=== PATIENT | male | born 1940 | race Caucasian/White ===

== ENCOUNTER 2016-06-16 09:58 | Inpatient (IN) | payer OTHER, MEDICARE ==
[2016-06-16] VITALS (11 sets, daily range): BP systolic 111–204; BP diastolic 64–88; PULSE 62–89; RESP 14–18; TEMP 97.8–98.4; O2SAT 97–99
[~2016-06-16] VITALS: Ht 185.4 cm; Wt 103.7 kg
[~2016-06-16 09:58] MED LIST: ATOR10TA15 PO; LEVO125T4 PO; LISI2.5T3 PO; METO25TA3 PO; XARE20TA PO
--- NOTE | 2016-06-16 10:26 | PD ---
HPI Chief Complaint: Chest Pain Time Seen by Provider: 10:15 Travel History International Travel<30 days: No Contact w/Intl Traveler<30days: No Traveled to known affect area: No History of Present Illness HPI 75-year-old male here for evaluation of chest pain that occurred last night between 6 PM and 11 PM. The patient was admitted in April of this year for A. fib with RVR. He had a cardiac catheterization that showed a 40% RCA lesion and the overall conclusion showed nonobstructive CAD and medical management was advised. He had increased troponin during that visit and this was thought to be secondary to demand ischemia from rapid A. fib. He was started on Xarelto. Cardiac catheterization was performed by shirt hemmer Dr. Ross. Patient had left -sided chest discomfort yesterday evening between 6 PM and 11 PM. See his associated with dizziness and shortness of breath. Currently the patient is symptom-free. He called Dr. Ross's office today and was advised to present to the emergency department for evaluation. He reports having cough recently. No fevers. No paresthesias or motor deficits. PFSH Past Medical History Arthritis: Yes (joint pain, and knees) Heart Rhythm Problems: Yes (Hx. of Afib) Cardiovascular Problems: Yes High Cholesterol: Yes Chest Pain: Yes COPD: Yes (Pt. rerports scar tissue in lungs) Hiatal Hernia: Yes Hypertension: Yes Implanted Vascular Access Dvce: No Musculoskeletal: Yes Neurologic: No Psychiatric: No Reproductive: No Respiratory: Yes Thyroid Disease: Yes (HYPO - non compliant with meds) ?: Not Past Surgical History Abdominal Surgery: Yes (Appendix & Hernia Removal) Cardiac Surgery: Yes (Unsure of stents - Senior Clinical Sas Programmer is Aware- Dr. Marion Howell ) Ear Surgery: No Endocrine Surgery: No Eye Surgery: No Genitourinary Surgery: No Gynecologic Surgery: No Neurologic Surgery: No Oral Surgery: Yes (Removal of teeth - has dentures) Thoracic Surgery: No Other Surgery: Yes Social History Alcohol Use: Yes (on occasion) Tobacco Use: Yes (0.5 ppd) Substance Use: No Allergies-Medications (Allergen,Severity, Reaction): Coded Allergies: No Known Allergies (Unverified , 05/13/16) Reported Meds & Prescriptions Reported Meds & Active Scripts Active Lisinopril 2.5 Mg Tab 2.5 Mg PO DAILY Levothyroxine (Levothyroxine Sodium) 125 Mcg Tab 125 Mcg PO DAILY Atorvastatin (Atorvastatin Calcium) 10 Mg Tab 10 Mg PO HS Reported Plavix (Clopidogrel Bisulfate) 75 Mg Tab 75 Mg PO DAILY Metoprolol Tartrate 25 Mg Tab 25 Mg PO BID Review of Systems Except as stated in HPI: all other systems reviewed are Neg Physical Exam Narrative GENERAL: Well-developed, well-nourished, comfortable, no acute distress. SKIN: Warm and dry. No rash. HEAD: Atraumatic. Normocephalic. EYES: Pupils equal and round. No scleral icterus. No injection or drainage. ENT: No nasal bleeding or discharge. Mucous membranes pink and moist. CARDIOVASCULAR: Regular rate and rhythm. Distal pulses brisk and equal bilaterally. RESPIRATORY: No accessory muscle use. Clear to auscultation. Breath sounds equal bilaterally. GASTROINTESTINAL: Abdomen soft, non-tender, nondistended. MUSCULOSKELETAL: No obvious deformities. No clubbing. No cyanosis. No edema. NEUROLOGICAL: Awake and alert. No obvious cranial nerve deficits. Motor grossly within normal limits. Normal speech. PSYCHIATRIC: Appropriate mood and affect; insight and judgment normal. Data Data Last Documented VS Vital Signs Date Time Temp Pulse Resp B/P Pulse Ox O2 Delivery O2 Flow Rate FiO2 06/16/16 11:48 72 18 204/88 97 Room Air 06/16/16 10:11 97.8 Orders Basic Metabolic Panel (Bmp) (06/16/16 10:23) Ckmb (Isoenzyme) Profile (06/16/16 10:23) Complete Blood Count With Diff (06/16/16 10:23) Magnesium (Mg) (06/16/16 10:23) Prothrombin Time / Inr (Pt) (06/16/16 10:23) Act Partial Throm Time (Ptt) (06/16/16 10:23) Troponin I (06/16/16 10:23) Chest, Single Ap (06/16/16 10:23) Ecg Monitoring (06/16/16 10:23) Bilateral Bp Monitoring (06/16/16 10:23) Iv Access Insert/Monitor (06/16/16 10:23) Oximetry (06/16/16 10:23) Oxygen Administration (06/16/16 10:23) Sodium Chloride 0.9% Flush (Ns Flush) (06/16/16 10:30) Aspirin Chew (Aspirin Chew) (06/16/16 11:30) Labs Laboratory Tests Test 06/16/16 10:36 White Blood Count 5.0 TH/MM3 Red Blood Count 2.84 MIL/MM3 Hemoglobin 11.8 GM/DL Hematocrit 34.4 % Mean Corpuscular Volume 121.1 FL Mean Corpuscular Hemoglobin 41.4 PG Mean Corpuscular Hemoglobin 34.2 % Concent Red Cell Distribution Width 17.3 % Platelet Count 138 TH/MM3 Mean Platelet Volume 9.3 FL Neutrophils (%) (Auto) 55.0 % Lymphocytes (%) (Auto) 29.4 % Monocytes (%) (Auto) 11.5 % Eosinophils (%) (Auto) 3.7 % Basophils (%) (Auto) 0.4 % Neutrophils # (Auto) 2.8 TH/MM3 Lymphocytes # (Auto) 1.5 TH/MM3 Monocytes # (Auto) 0.6 TH/MM3 Eosinophils # (Auto) 0.2 TH/MM3 Basophils # (Auto) 0.0 TH/MM3 CBC Comment DIFF FINAL Differential Comment Prothrombin Time 11.1 SEC Prothromb Time International 1.0 RATIO Ratio Activated Partial 27.7 SEC Thromboplast Time Sodium Level 138 MEQ/L Potassium Level 4.2 MEQ/L Chloride Level 105 MEQ/L Carbon Dioxide Level 28.3 MEQ/L Anion Gap 5 MEQ/L Blood Urea Nitrogen 20 MG/DL Creatinine 1.10 MG/DL Estimat Glomerular Filtration 65 ML/MIN Rate Random Glucose 102 MG/DL Calcium Level 8.6 MG/DL Magnesium Level 2.3 MG/DL Total Creatine Kinase 75 U/L Troponin I 0.79 NG/ML [facility] Medical Decision Making Medical Screen Exam Complete: Yes Emergency Medical Condition: Yes Medical Record Reviewed: Yes Differential Diagnosis ACS, pneumothorax, pericarditis, PE, pneumonia, electrolyte abnormality, anemia , vertigo Narrative Course Initial vital signs show heart rate 64, blood pressure 146/70, pulse ox 98% on room air, oral temp of 97.8F. CBC shows WBC 5, hemoglobin 11.8, hematocrit 34.4, platelets 138. BMP is unremarkable. Troponin is 0.79. Total CK is 75. Chest x-ray read as normal exam. EKG shows no signs of ischemia. Patient was made aware of all findings. Again he has been completely is symptomatic since around 11 PM last night. Case discussed with the patient's shirt hemmer Dr. Ross. The patient could have had an episode of A. fib with RVR last night causing his symptoms of chest pain and dizziness. This could also cause demand ischemia causing an increase in his troponin. Anticoagulation with heparin/Lovenox will be held at this time. The patient has been taking Xarelto since being discharged in April. The patient will be admitted for telemetry monitoring and serial troponin. The patient was made aware of all findings and plan for admission. Case discussed with hospitalist Dr. Rojas who will admit the patient to his service. Diagnosis Primary Impression: Chest pain Qualified Code: R07.9 - Chest pain, unspecified type Additional Impression: Elevated troponin Admitting Information Admitting Physician Requests: Admit Carlos Cheung MD Jun 16, 2016 10:26
[2016-06-16] MEDS ORDERED: SODIUM CHLORIDE 0.9% FLUSH 5 ML FLUSH IVF PRN (10:30)
--- NOTE | 2016-06-16 10:47 | RADRPT ---
EXAM DATE/TIME: 06/16/2016 10:35 [facility] COMPARISON: CHEST SINGLE AP, May 13, 2016, 14:44. INDICATIONS : Shortness of breath. MEDICAL HISTORY : None. SURGICAL HISTORY : None. ENCOUNTER: Initial ACUITY: 1 day PAIN SCORE: 0/10 LOCATION: Bilateral chest FINDINGS: A single view of the chest demonstrates the lungs to be symmetrically aerated without evidence of mas s, infiltrate or effusion. The cardiomediastinal contours are unremarkable. Osseous structures are intact. CONCLUSION: Normal examination. Artie Matute MD on June 16, 2016 at 10:45 Board Certified Radiologist. This report was verified electronically.
[2016-06-16] MEDS ORDERED: PLAV75TA29 PO (10:55)
[2016-06-16 10:58] LABS: AUTOMATED NEUTROPHIL # 2.8 TH/MM3 (1.8-7.7); BASOPHIL % 0.4 % (0.0-2.0); EOSINOPHIL # 0.2 TH/MM3 (0-0.4); EOSINOPHIL % 3.7 % (0.0-4.0); HEMATOCRIT 34.4 % (39.0-51.0); HEMO FLAGS DIFF FINAL; LYMPH % 29.4 % (9.0-44.0); LYMPHOCYTE # 1.5 TH/MM3 (1.0-4.8); MEAN CELL VOLUME 121.1 FL (80.0-100.0); MEAN CORPUSCULAR HEMOGLOBIN 41.4 PG (27.0-34.0); MEAN CORPUSCULAR HGB CONC 34.2 % (32.0-36.0); MONO % 11.5 % (0.0-8.0); PLATELET COUNT 138 TH/MM3 (150-450); RED BLOOD COUNT 2.84 MIL/MM3 (4.50-5.90); RED CELL DISTRIBUTION WIDTH 17.3 % (11.6-17.2)
[2016-06-16 11:12] LABS: BICARBONATE 28.3 MEQ/L (21.0-32.0); MAGNESIUM 2.3 MG/DL (1.5-2.5); POTASSIUM 4.2 MEQ/L (3.5-5.1)
[2016-06-16 11:13] LABS: APTT (PATIENT) 27.7 SEC (24.3-30.1); PROTHROMBIN TIME - PATIENT 11.1 SEC (9.8-11.6)
[2016-06-16] MEDS ORDERED: ASPIRIN 81 MG CHEW TAB PO ONE (11:30)
[2016-06-16] MEDS ORDERED: NALOXONE HCL 0.4 MG/ML AMP IV PRN (14:30)
[2016-06-16] MEDS ORDERED: LISINOPRIL 20 MG TAB PO SCH (14:30)
[2016-06-16] MEDS ORDERED: ENOXAPARIN SODIUM 40 MG/0.4 ML SYRINGE SQ SCH (14:30)
[2016-06-16] MEDS ORDERED: MORPHINE SULFATE 4 MG/ML INJ IV PRN (14:30)
[2016-06-16] MEDS ORDERED: ACETAMINOPHEN 325 MG TAB PO PRN ×2 (14:30)
[2016-06-16] MEDS ORDERED: SENNOSIDES 8.6 MG TAB PO PRN (14:30)
[2016-06-16] MEDS ORDERED: ONDANSETRON HCL 4 MG/2 ML VIAL IVP PRN (14:30)
[2016-06-16] MEDS ORDERED: METOPROLOL TARTRATE 25 MG TAB PO SCH (14:30)
[2016-06-16] MEDS ORDERED: ENALAPRILAT 2.5 MG/2 ML VIAL IV PUSH PRN (14:30)
[2016-06-16] MEDS ORDERED: SODIUM CHLORIDE 0.9% FLUSH 5 ML FLUSH FLUSH PRN (14:30)
[2016-06-16] MEDS: DOCUSATE SODIUM 100 MG CAP PO SCH (15:33)
[2016-06-16] MEDS: CLOPIDOGREL 75 MG TAB PO SCH (15:34)
--- NOTE | 2016-06-16 15:38 | HHI.HP ---
[facility] Service [place] [facility] Primary Care Physician Non-Staff Admission Diagnosis chest pain, elevated troponin Diagnoses: Chief Complaint: Palpitations, chest pain Travel History International Travel<30 Days: No Contact w/Intl Traveler <30 Da: No Traveled to Known Affected Are: No History of Present Illness The patient is a 75-year-old male who was recently hospitalized for atrial fibrillation who is presenting to the hospital with chest pain and palpitations. The patient says that since being discharged from the hospital 2 weeks ago he has had 3 episodes of chest pain. He said the first 2 episodes were minor but the one last night was significant. He said it started at around 6:30 PM. He felt like his heart was racing. He described a tightness in the center of his chest. He rated the pain as a 10 out of 10 in severity. He says he tried to take an extra dose of Lopressor and that didn't help. He said that at 11 PM the symptoms went away and he was able to sleep. 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 The patient does endorse lightheadedness associated with his symptoms. He said that last night he felt like he might fall down so he slowly lowered himself to the ground. He did not hit his head. Review of Systems Constitutional: COMPLAINS OF: Dizziness Respiratory: COMPLAINS OF: Shortness of breath Cardiovascular: COMPLAINS OF: Chest pain, Palpitations, Lower Extremity Edema Gastrointestinal: DENIES: Constipation, Diarrhea Musculoskeletal: COMPLAINS OF: Muscle aches Neurologic: DENIES: Abnormal gait Past Family Social History Past Medical History Atrial fibrillation HTN HLD COPD Hypothyroidism Left kidney cyst Past Surgical History Appendectomy Abdominal hernia repair Allergies: Coded Allergies: No Known Allergies (Unverified , 05/13/16) Active Ordered Medications Current Medications Medications (Trade) Dose Ordered Sig/Codie Route Start Time Stop Time Status Last Admin (NS Flush) 2 ml UNSCH PRN IVF 06/16/16 10:30 (NS Flush) 2 ml UNSCH PRN FLUSH 06/16/16 14:30 (NS Flush) 2 ml BID FLUSH 06/16/16 21:00 (Tylenol) 650 mg Q4H PRN PO 06/16/16 14:30 (Zofran Inj) 4 mg Q6H PRN IVP 06/16/16 14:30 (Colace) 100 mg Q12H PO 06/16/16 14:30 (Senokot) 17.2 mg Q12H PRN PO 06/16/16 14:30 (Lovenox Inj) 40 mg Q24H SQ 06/16/16 14:30 (Tylenol) 650 mg Q6H PRN PO 06/16/16 14:30 (Roxicodone) 10 mg Q4H PRN PO 06/16/16 14:30 (Morphine Inj) 4 mg Q3H PRN IV 06/16/16 14:30 (Roxicodone) 5 mg Q4H PRN PO 06/16/16 14:30 (Narcan Inj) 0.4 mg UNSCH PRN IV 06/16/16 14:30 (Lipitor) 10 mg HS PO 06/16/16 21:00 (Plavix) 75 mg DAILY PO 06/16/16 14:30 (Synthroid) 125 mcg DAILY@06 PO 06/17/16 06:00 (Prinivil) 20 mg DAILY PO 06/16/16 14:30 (Vasotec Inj) 2.5 mg Q6H PRN IV PUSH 06/16/16 14:30 Metoprolol Tartrate 50 mg 50 mg BID PO 06/16/16 21:00 UNV (Heparin-D5W Inj) 250 ml @ 0 mls/hr TITRATE IV 06/16/16 15:45 UNV Family History DM HTN Social History The patient smokes up to 6 cigarettes daily. He does not drink. Physical Exam Vital Signs Vital Signs Date Time Temp Pulse Resp B/P Pulse Ox O2 Delivery O2 Flow Rate FiO2 06/16/16 13:48 70 18 163/76 97 Room Air 06/16/16 11:48 72 18 204/88 97 Room Air 06/16/16 11:44 98 Room Air 06/16/16 11:44 65 168/78 159/82 06/16/16 11:44 18 97 Room Air 06/16/16 10:14 67 18 97 Room Air 06/16/16 10:11 97.8 66 18 168/82 98 06/16/16 10:00 97.8 64 14 146/70 97 Room Air Physical Exam GENERAL: This is a well-nourished, well-developed patient, in no apparent distress. SKIN: No rashes, ecchymoses or lesions. Cool and dry. HEAD: Atraumatic. Normocephalic. No temporal or scalp tenderness. EYES: Pupils equal round and reactive. Extraocular motions intact. No scleral icterus. No injection or drainage. ENT: Nose without bleeding, purulent drainage or septal hematoma. Throat without erythema, tonsillar hypertrophy or exudate. Uvula midline. Airway patent. NECK: Trachea midline. No JVD or lymphadenopathy. Supple, nontender, no meningeal signs. CARDIOVASCULAR: Regular rate and rhythm without murmurs, gallops, or rubs. RESPIRATORY: Clear to auscultation. Breath sounds equal bilaterally. No wheezes , rales, or rhonchi. GASTROINTESTINAL: Abdomen soft, non-tender, nondistended. No hepato-splenomegaly , or palpable masses. No guarding. MUSCULOSKELETAL: Trace edema in the lower extremities. NEUROLOGICAL: Awake and alert. Cranial nerves II through XII intact. Motor and sensory grossly within normal limits. Five out of 5 muscle strength in all muscle groups. Normal speech. PSYCH: Mood and affect appropriate. Laboratory Laboratory Tests Test 06/16/16 10:36 White Blood Count 5.0 Red Blood Count 2.84 Hemoglobin 11.8 Hematocrit 34.4 Mean Corpuscular Volume 121.1 Mean Corpuscular Hemoglobin 41.4 Mean Corpuscular Hemoglobin 34.2 Concent Red Cell Distribution Width 17.3 Platelet Count 138 Mean Platelet Volume 9.3 Neutrophils (%) (Auto) 55.0 Lymphocytes (%) (Auto) 29.4 Monocytes (%) (Auto) 11.5 Eosinophils (%) (Auto) 3.7 Basophils (%) (Auto) 0.4 Neutrophils # (Auto) 2.8 Lymphocytes # (Auto) 1.5 Monocytes # (Auto) 0.6 Eosinophils # (Auto) 0.2 Basophils # (Auto) 0.0 CBC Comment DIFF FINAL Differential Comment Prothrombin Time 11.1 Prothromb Time International 1.0 Ratio Activated Partial 27.7 Thromboplast Time Sodium Level 138 Potassium Level 4.2 Chloride Level 105 Carbon Dioxide Level 28.3 Anion Gap 5 Blood Urea Nitrogen 20 Creatinine 1.10 Estimat Glomerular Filtration 65 Rate Random Glucose 102 Calcium Level 8.6 Magnesium Level 2.3 Total Creatine Kinase 75 Troponin I 0.79 Result Diagram: 06/16/16 1036 06/16/16 1036 Imaging Last Impressions Chest X-Ray 06/16/16 1023 Signed Impressions: Service Date/Time: Thursday, June 16, 2016 10:35 - CONCLUSION: Normal examination. Artie Matute MD Assessment and Plan Assessment and Plan NSTEMI Troponin level 0.79 on admission. EKG without evidence of ischemia. Likely secondary to A. fib with RVR. - Continue to trend troponins. - Start heparin drip. - Cardiology consult pending. - Continue cardiac regimen. - Monitor on telemetry. A. fib with RVR Recently hospitalized for the same thing. He experienced about 5 hours of palpitations the night prior to admission. He is on Lopressor as an outpatient. He has not been taking Xarelto. - Increase Lopressor to 50 mg by mouth twice a day. - Cardiology consultation pending. - Heparin drip. - Telemetry. Accelerated hypertension Systolic blood pressure has been over 200 in the emergency department. - Increase home lisinopril dose and adjust as needed. - Vasotec as needed. Anemia Hemoglobin not far from baseline. - Check folate and B12 level as MCV is quite elevated. COPD/ Nicotine dependence The patient still smokes up to 6 cigarettes daily. - Cessation instruction. - oxygen and nebs as needed. PPx: Heparin. Code Status Full Discussed Condition With Dr. Cheung, pt, pt's family. Physician Certification 2 Midnight Certification Type: Admission for Inpatient Services Order for Inpatient Services The services are ordered in accordance with Medicare regulations or non- Medicare payer requirements, as applicable. In the case of services not specified as inpatient-only, they are appropriately provided as inpatient services in accordance with the 2-midnight benchmark. Estimated LOS (days): 2 days is the estimated time the patient will need to remain in the hospital, assuming treatment plan goals are met and no additional complications. Post-Hospital Plan: Home Jae Rojas DO Jun 16, 2016 15:38
[2016-06-16 16:52] LABS: APTT (PATIENT) 28.5 SEC (24.3-30.1)
[2016-06-16] MEDS ORDERED: HEPARIN-D5W INJ 250 ML IV SCH (18:00)
[2016-06-16] MEDS: SODIUM CHLORIDE 0.9% FLUSH 5 ML FLUSH FLUSH SCH (20:17)
[2016-06-16] MEDS ORDERED: ATORVASTATIN 10 MG TAB PO SCH (21:00)
[2016-06-16] MEDS ORDERED: METOPROLOL TARTRATE 50 MG TAB PO SCH (21:00)
[2016-06-16 23:11] LABS: APTT (PATIENT) 40.3 SEC (24.3-30.1)
[2016-06-17] VITALS (17 sets, daily range): BP systolic 138–154; BP diastolic 70–95; PULSE 54–74; RESP 14–18; TEMP 98–98.7; O2SAT 96–99
[2016-06-17] MEDS: DOCUSATE SODIUM 100 MG CAP PO SCH ×2 (01:09→14:30)
[2016-06-17] MEDS ORDERED: IOHEXOL 350 MG/ML 10 ML VIAL (for RAD DIAG) IV ONE (02:14)
--- NOTE | 2016-06-17 02:44 | RADRPT ---
EXAM DATE/TIME: 06/17/2016 02:09 [facility] COMPARISON: No previous studies available for comparison. INDICATIONS : Short of breath. IV CONTRAST: 72 cc Omnipaque 350 (iohexol) IV RADIATION DOSE: 23.41 CTDIvol (mGy) MEDICAL HISTORY : Cardiovascular disease. Hypertension. Myocardial infarction.a-fib, hiatal hernia, copd SURGICAL HISTORY : hernia removed. ENCOUNTER: Initial ACUITY: 1 day PAIN SCALE: 0/10 LOCATION: chest TECHNIQUE: Volumetric scanning of the chest was performed using a pulmonary embolism protocol MIP images were re constructed. Using automated exposure control and adjustment of the mA and/or kV according to patien t size, radiation dose was kept as low as reasonably achievable to obtain optimal diagnostic quality images. FINDINGS: There is no pulmonary embolus. Mild patchy consolidation again seen of both lungs, primarily subpleural in the bilateral mid an d lower lungs, much of it with tree in bud type appearance. There is mild more central consolidation on the right in the infrahilar region. No lymphadenopathy demonstrated. Heart size within normal limits. There is right and left-sided coronary artery calcification. Large upper pole cyst partly seen of the left kidney, measures at least 8.3 cm in size. CONCLUSION: 1. No pulmonary embolus. 2. Mild, mainly atypical appearing infiltrates of both lungs. 3. Coronary artery calcification. 4. Large cyst partly seen in upper pole left kidney. Howard Chow MD on June 17, 2016 at 2:39 Board Certified Radiologist. This report was verified electronically.
[2016-06-17] MEDS: LEVOTHYROXINE SODIUM 125 MCG TAB PO SCH (05:02)
[2016-06-17 05:22] LABS: AUTOMATED NEUTROPHIL # 2.2 TH/MM3 (1.8-7.7); BASOPHIL % 0.5 % (0.0-2.0); EOSINOPHIL # 0.4 TH/MM3 (0-0.4); EOSINOPHIL % 7.1 % (0.0-4.0); HEMATOCRIT 34.8 % (39.0-51.0); HEMO FLAGS DIFF FINAL; LYMPH % 36.4 % (9.0-44.0); LYMPHOCYTE # 1.8 TH/MM3 (1.0-4.8); MEAN CELL VOLUME 121.4 FL (80.0-100.0); MEAN CORPUSCULAR HEMOGLOBIN 41.3 PG (27.0-34.0); MEAN CORPUSCULAR HGB CONC 34.1 % (32.0-36.0); MONO % 10.6 % (0.0-8.0); NEUT % 45.4 % (16.0-70.0); PLATELET COUNT 130 TH/MM3 (150-450); RED BLOOD COUNT 2.86 MIL/MM3 (4.50-5.90); RED CELL DISTRIBUTION WIDTH 17.3 % (11.6-17.2)
[2016-06-17 05:43] LABS: APTT (PATIENT) 42.2 SEC (24.3-30.1)
[2016-06-17 05:47] LABS: ALT (GPT) 13 U/L (12-78); ANION GAP 3 MEQ/L (5-15); AST (GOT) 13 U/L (15-37); BICARBONATE 30.7 MEQ/L (21.0-32.0); BLOOD UREA NITROGEN 17 MG/DL (7-18); CHLORIDE 106 MEQ/L (98-107); GLOMERULAR FILTRATION RATE 73 ML/MIN (>89); POTASSIUM 4.4 MEQ/L (3.5-5.1); SODIUM (NA) 140 MEQ/L (136-145)
[2016-06-17 05:49] LABS: ALKALINE PHOSPHATASE 78 U/L (45-117); TOTAL BILIRUBIN ADULT 0.6 MG/DL (0.2-1.0)
[2016-06-17] MEDS ORDERED: CYANOCOBALAMIN 1000 MCG/ML VIAL IM ONE (09:00)
--- NOTE | 2016-06-17 09:25 | HHI.PR ---
Subjective Remarks The patient was resting in bed comfortably. He states that he felt palpitations every once in a while. He thought that his blood pressure was high earlier because he felt it. He said he slept well overnight. He says he has numbness in his feet. He says he has had low vitamin B12 levels before. He would like to go home later today if possible. Discussed with nursing. Objective Vitals Vital Signs Date Time Temp Pulse Resp B/P Pulse Ox O2 Delivery O2 Flow Rate FiO2 06/17/16 08:00 62 06/17/16 07:20 98.5 61 14 154/95 99 06/17/16 06:00 54 06/17/16 05:00 74 06/17/16 04:00 55 06/17/16 04:00 98.2 65 14 145/93 98 06/17/16 03:00 62 06/17/16 02:00 64 06/17/16 01:00 64 06/17/16 00:00 60 06/16/16 23:00 64 06/16/16 22:00 62 06/16/16 21:00 63 06/16/16 20:00 89 06/16/16 20:00 98.4 73 14 111/64 97 06/16/16 18:42 98.0 78 18 128/70 98 06/16/16 16:39 62 18 128/71 99 Room Air 06/16/16 13:48 70 18 163/76 97 Room Air 06/16/16 11:48 72 18 204/88 97 Room Air 06/16/16 11:44 98 Room Air 06/16/16 11:44 65 168/78 159/82 06/16/16 11:44 18 97 Room Air 06/16/16 10:14 67 18 97 Room Air 06/16/16 10:11 97.8 66 18 168/82 98 06/16/16 10:00 97.8 64 14 146/70 97 Room Air I/O 06/16/16 06/16/16 06/16/16 06/17/16 06/17/16 06/17/16 07:00 15:00 23:00 07:00 15:00 23:00 Intake Total 240 ml 240 ml 100 ml Balance 240 ml 240 ml 100 ml Intake Oral 240 ml 240 ml IV Total 100 ml # Voids 2 Result Diagram: 06/17/16 0505 06/17/[address] Angiography 06/17/16 0000 Signed Impressions: Service Date/Time: Friday, June 17, 2016 02:09 - CONCLUSION: 1. No pulmonary embolus. 2. Mild, mainly atypical appearing infiltrates of both lungs. 3. Coronary artery calcification. 4. Large cyst partly seen in upper pole left kidney. Howard Chow MD Chest X-Ray 06/16/16 1023 Signed Impressions: Service Date/Time: Thursday, June 16, 2016 10:35 - CONCLUSION: Normal examination. Artie Matute MD Objective Remarks GENERAL: This is a well-nourished, well-developed patient, in no apparent distress. SKIN: No rashes, ecchymoses or lesions. Cool and dry. HEAD: Atraumatic. Normocephalic. No temporal or scalp tenderness. EYES: Pupils equal round and reactive. Extraocular motions intact. No scleral icterus. No injection or drainage. ENT: Nose without bleeding, purulent drainage or septal hematoma. Throat without erythema, tonsillar hypertrophy or exudate. Uvula midline. Airway patent. NECK: Trachea midline. No JVD or lymphadenopathy. Supple, nontender, no meningeal signs. CARDIOVASCULAR: Regular rate and rhythm without murmurs, gallops, or rubs. RESPIRATORY: Clear to auscultation. Breath sounds equal bilaterally. No wheezes , rales, or rhonchi. GASTROINTESTINAL: Abdomen soft, non-tender, nondistended. No hepato-splenomegaly , or palpable masses. No guarding. MUSCULOSKELETAL: No edema in the lower extremities. NEUROLOGICAL: Awake and alert. Cranial nerves II through XII intact. Five out of 5 muscle strength in all muscle groups. Numbness in bilateral feet. Normal speech. PSYCH: Mood and affect appropriate. Medications and IVs Current Medications Medications (Trade) Dose Ordered Sig/Codie Route Start Time Stop Time Status Last Admin (NS Flush) 2 ml UNSCH PRN IVF 06/16/16 10:30 (NS Flush) 2 ml UNSCH PRN FLUSH 06/16/16 14:30 (NS Flush) 2 ml BID FLUSH 06/16/16 21:00 (Tylenol) 650 mg Q4H PRN PO 06/16/16 14:30 (Zofran Inj) 4 mg Q6H PRN IVP 06/16/16 14:30 (Colace) 100 mg Q12H PO 06/16/16 14:30 06/17/16 01:09 (Senokot) 17.2 mg Q12H PRN PO 06/16/16 14:30 (Tylenol) 650 mg Q6H PRN PO 06/16/16 14:30 (Roxicodone) 10 mg Q4H PRN PO 06/16/16 14:30 (Morphine Inj) 4 mg Q3H PRN IV 06/16/16 14:30 (Roxicodone) 5 mg Q4H PRN PO 06/16/16 14:30 (Narcan Inj) 0.4 mg UNSCH PRN IV 06/16/16 14:30 (Lipitor) 10 mg HS PO 06/16/16 21:00 06/16/16 20:17 (Plavix) 75 mg DAILY PO 06/16/16 14:30 06/16/16 15:34 (Synthroid) 125 mcg DAILY@06 PO 06/17/16 06:00 06/17/16 05:02 (Vasotec Inj) 2.5 mg Q6H PRN IV PUSH 06/16/16 14:30 Metoprolol Tartrate 50 mg 50 mg BID PO 06/16/16 21:00 06/16/16 20:17 (Heparin-D5W Inj) 250 ml @ 0 mls/hr TITRATE IV 06/16/16 18:00 06/16/16 17:09 (Prinivil) 40 mg DAILY PO 06/17/16 09:00 A/P Assessment and Plan NSTEMI Troponin level peaked at 0.91. EKG without evidence of ischemia. Likely secondary to A. fib with RVR. Recent cardiac cath with nonobstructive CAD and normal EF. - continue heparin drip. - Cardiology consult pending. - Continue cardiac regimen. - Monitor on telemetry. - rate control. A. fib with RVR Recently hospitalized for the same thing. He experienced about 5 hours of palpitations the night prior to admission. He is on Lopressor as an outpatient. He has not been taking Xarelto. Heart rate well controlled at this time. - Increased Lopressor to 50 mg by mouth twice a day. - Cardiology consultation pending. - Heparin drip. - Telemetry. Accelerated hypertension Systolic blood pressure has been over 200 in the emergency department. Improved 06/17. - Increase home lisinopril dose to 40 mg daily. - increased Lopressor to 50 mg BID. - Vasotec as needed. Anemia/ Vit B12 deficiency Hemoglobin not far from baseline. B12 level < 60. - Vit B12 IM x 1 followed by 1000 mcg po daily. - out pt follow-up. COPD/ Nicotine dependence/ Atypical PNA The patient still smokes up to [address] with atypical infiltrates. - Cessation instruction. - oxygen and nebs as needed. - Levaquin. - sputum culture and gram stain. PPx: Heparin. Discharge Planning Awaiting cardiology clearance. Jae Rojas DO Jun 17, 2016 09:25
[2016-06-17] MEDS ORDERED: HEPARIN-NS/PF INJ 500 ML ONE (09:40)
[2016-06-17] MEDS ORDERED: MIDAZOLAM HCL 2 MG/2 ML VIAL ONE (09:45)
[2016-06-17] MEDS ORDERED: HEPARIN SODIUM - IV 10,000 UNITS/10 ML VIAL ONE (09:45)
[2016-06-17] MEDS ORDERED: NITROGLYCERIN INJ 5 ML ONE (09:45)
[2016-06-17] MEDS ORDERED: VERAPAMIL HCL 5 MG/2 ML VIAL ONE (09:45)
--- NOTE | 2016-06-17 09:45 | MB ---
cc: SHIRA PATEL DATE OF CONSULTATION 06/17/2016 DATE OF 07/25/1938 REASON FOR CONSULTATION Chest pain HISTORY OF PRESENT ILLNESS 76-year-old male with a past medical history of hypertension, active smoker, SVT and a recent smoker, emphysema and a recent normal left heart cath in the setting of chest pain who presented to the hospital with acute onset of left- sided chest pressure with radiation to the left shoulder yesterday. The chest pain was associated with dizziness. He denies syncope, nausea, vomiting, fevers , chills, PND, leg swelling or palpitations. He came into the emergency department in the morning. EKG showed atrial fibrillation with adequate ventricular response. Blood work found elevated troponins of 0.69. The patient was chest pain-free and cardiology has been consulted for further management and evaluation of elevated troponins. REVIEW OF SYSTEMS Negative except for what is mentioned in the HPI. PAST MEDICAL HISTORY 1. Hypertension 2. Hyperlipidemia 3. COPD 4. Hypothyroidism 5. Active smoker PAST MEDICAL AND SURGICAL HISTORY 1. Appendectomy 2. Abdominal hernia repair 3. Normally cardiac catheterization ALLERGIES NO KNOWN DRUG ALLERGIES. FAMILY HISTORY Noncontributory SOCIAL HISTORY He denies alcohol use or illicit drug use. He is an active smoker. MEDICATIONS 1. Lipitor 10 mg p.o. daily 2. Plavix 75 mg p.o. daily 3. Levothyroxine 125 mcg p.o. daily 4. Lisinopril 2.5 mg p.o. daily 5. Metoprolol tartrate 25 mg p.o. b.i.d. He reports being compliant with medications. PHYSICAL EXAMINATION VITAL SIGNS: Temperature 98.5, pulse of 54 and respiratory rate 14, blood pressure 154/95, he is sating 99% on room air. GENERAL: He is awake, alert and oriented x3 in no acute distress. NECK: No JVD, no carotid bruits. HEART: Irregularly/irregular. No murmurs, rubs or gallops appreciated. LUNGS: Clear to auscultation bilaterally. No wheezing, rhonchi or rales. ABDOMEN: Soft, nontender and nondistended with positive bowel sounds. EXTREMITIES: There is no cyanosis or edema and there are pulses throughout. DATA CBC hemoglobin 11, hematocrit of 34, platelet count 130, INR 1. Chemistries sodium 140, potassium 4.4, BUN 17, creatinine 1, troponins 0.79, 0.91 and 0.76. EKG shows atrial fibrillation. Cardiac studies, he has a left heart cath done on May 14, 2016 for the same complaints which showed nonobstructive coronary artery disease with a negative IFFR of the right coronary artery, also a normal LV systolic function and an elevated left ventricular end diastolic pressure. At that time, it was recommended to continue aggressive medical management for primary prevention of CAD. ASSESSMENT/PLAN A 75-year-old male with the above past medical history and findings who presented with angina and elevated troponins. He has a recent normal left heart catheterization. At that time, it was felt that elevated troponin was secondary to demand ischemia secondary to SVT with RVR, however at this time, his atrial fibrillation is rate controlled. It was possible that the patient did have an episode of SVT at home and these elevations might be due to that or Prinzmetal Angina (coronary vasospasm). Chest pain atypical. It is possible that he can have a new unstable plaque that is acting up since the last time he was here given his cardiac risk factors. Thus at the time, I will recommend to repeat his left heart catheterization to reassess his coronary anatomy. The risks and benefits of left heart cath/plus/minus/PCI including but not limited to stroke, renal failure, bleeding, infection, emergent bypass surgery, stroke and has been explained to the patient and the patient is willing to proceed. RECOMMENDATIONS 1. Continue aggressive medical management of coronary artery Disease. 2. Continue management SVT. 3. Keep NPO for a left heart cath today. Thank you for the opportunity to take part in the care of this patient. MD VLADIMIR Jimenez/SENTHIL /9:01 AM /9:28 AM TABITHA
[2016-06-17] MEDS ORDERED: LEVOFLOXACIN 750 MG PREMIX INJ 150 ML IV SCH (10:00)
[2016-06-17] MEDS ORDERED: ADENOSINE STRESS TEST INJ 90 MG/30 ML VIAL ONE (10:26)
[2016-06-17] MEDS: SODIUM CHLORIDE 0.9% FLUSH 5 ML FLUSH FLUSH SCH ×2 (11:20→21:00)
[2016-06-17] MEDS: LISINOPRIL 20 MG TAB PO SCH (11:21)
[2016-06-17] MEDS: CLOPIDOGREL 75 MG TAB PO SCH (11:22)
--- NOTE | 2016-06-17 12:55 | MA ---
cc: SHIRA PATEL DATE 06/17/2016 DATE OF 1940 PROCEDURE PERFORMED 1. Left heart catheterization, 2. Selective right and left coronary angiography 3. Left ventricle hemodynamics 4. FFR of the RCA. INDICATIONS FOR PROCEDURE Assessment of elevated troponin's. Non-ST elevation SD. Of note, the patient had a recent left heart cath 1 month ago which was showed nonobstructive coronary artery disease. The right coronary artery was iFFR was negative for ischemia. DESCRIPTION OF PROCEDURE Consent signed. The patient was taken to the cardiac pathology laboratory technologist in a fasting state. The right groins and right wrist were prepped and draped in a sterile fashion. Using 1% lidocaine for local anesthesia and a micropuncture kit, a 6- Bulgarian sheath was inserted into the right radial artery. Antispasmodic cocktail given, then selective right and left coronary angiography were performed with a JR-4 and a JL-3.5 diagnostic catheters. Angiography was performed in multiple views. The coronary anatomy was unchanged from previous. There was a long tubular 60% narrowing in the right coronary artery in its mid segment. This artery is nondominant, however, given the patient's presentations and symptoms, we decided to FFR these lesion. For this, the right coronary artery was engaged with a JR-4 guide. Heparin IV was given for anticoagulation. The pressure was equalized outside the body and then normalize before the lesion. We then wired the lesion and anchored the wire distally without complications, followed by administration of IV Adenosine. Final FFR ratio was 0.85. Thus, no intervention was needed. The left ventricle was crossed with a JR-4 diagnostic catheter, followed by hemodynamic recordings and pullback. The patient tolerated the procedure well without complications. Estimated blood loss less than 30 cc. Total contrast used 60 cc. The right radial access site was closed with a TR band. ANGIOGRAPHIC FINDINGS Left ventricle. The left ventricular pressure was 112/10 with an LVEDP of 14. The aortic pressure was 112/59 with an mean of 86. ANGIOGRAPHIC RESULTS 1. The left main is patent, short with nonobstructive coronary artery disease. 2. The LAD is a relatively small vessel. It is tortuous with minimal luminal irregularities throughout. The diagonal is patent with nonobstructive CAD and VILMA-III flow. 3. The left circumflex artery is a dominant vessel giving off the PDA. It measures at least 4 mm. It has VILMA-3 flow with nonobstructive coronary artery disease. The OM1 and OM2 are small and they have diffuse distal disease. 4. The right coronary artery is a nondominant vessel. It has a proximal 40-50% lesion. CONCLUSION 1. Nonobstructive coronary artery disease with negative FFR of the RCA. 2. Normal LV systolic dysfunction and normal LVEDP. RECOMMENDATIONS Continue aggressive medical management for primary prevention of coronary artery disease with aspirin and starting beta-blockers, allyson inhibitors and long acting nitrates. Troponin elevation was likely due to an episode to coronary vasospasm. Continue rate control regimen and oral anticoagulation for atrial fibrillation. MD VLADIMIR Jimenez/SENTHIL /10:56 AM /12:41 PM TABITHA
--- NOTE | 2016-06-17 15:51 | EKG ---
Date Performed: 06/16/2016 Time Performed: 10:19:24 PTAGE: 75 years EKG: Sinus rhythm Compared to prior tracing no significant change NORMAL ECG INTERPRETATION BASED ON A DEFAULT AGE OF 40 YEARS PREVIOUS TRACING : 06/16/2016 10.09 DOCTOR: Bravo Baires Interpretating Date/Time 06/17/2016 15:47:11
--- NOTE | 2016-06-17 15:51 | EKG ---
Date Performed: 06/16/2016 Time Performed: 16:07:56 PTAGE: 75 years EKG: Sinus rhythm Compared to prior tracing no significant change NORMAL ECG INTERPRETATION BASED ON A DEFAULT AGE OF 40 YEARS PREVIOUS TRACING : 06/16/2016 10.19 DOCTOR: Bravo Baires Interpretating Date/Time 06/17/2016 15:47:04
[2016-06-17] MEDS ORDERED: ATORVASTATIN 80 MG TAB PO SCH (21:00)
[2016-06-17] MEDS: METOPROLOL TARTRATE 100 MG TAB PO SCH (21:13)
[2016-06-18] VITALS: BP 159/87; PULSE 61; RESP 18; TEMP 98.3; O2SAT 95
[2016-06-18] MEDS: DOCUSATE SODIUM 100 MG CAP PO SCH (02:05)
[2016-06-18 04:00] VITALS: BP 162/86; PULSE 60; RESP 18; TEMP 98.2; O2SAT 97
[2016-06-18] MEDS: LEVOTHYROXINE SODIUM 125 MCG TAB PO SCH (05:14)
[2016-06-18 05:53] LABS: APTT (PATIENT) 28.2 SEC (24.3-30.1)
[2016-06-18] MEDS ORDERED: ISOSORBIDE MONONITRATE 30 MG TAB PO SCH (07:00)
[2016-06-18 07:15] VITALS: BP 94/54; PULSE 62; PULSE 67; RESP 18; TEMP 98.3; O2SAT 98
[2016-06-18 08:00] VITALS: PULSE 66
[2016-06-18 09:00] VITALS: PULSE 60
[2016-06-18] MEDS ORDERED: CYANOCOBALAMIN 1,000 MCG TAB PO SCH (09:00)
[2016-06-18] MEDS: LISINOPRIL 20 MG TAB PO SCH (09:00)
--- NOTE | 2016-06-18 09:26 | PD.CARD.PN ---
Subjective Subjective Remarks no complaints no overnight events Objective Medications Current Medications Medications (Trade) Dose Ordered Sig/Codie Route Start Time Stop Time Status Last Admin (NS Flush) 2 ml UNSCH PRN IVF 06/16/16 10:30 (NS Flush) 2 ml UNSCH PRN FLUSH 06/16/16 14:30 (NS Flush) 2 ml BID FLUSH 06/16/16 21:00 06/17/16 21:00 (Tylenol) 650 mg Q4H PRN PO 06/16/16 14:30 (Zofran Inj) 4 mg Q6H PRN IVP 06/16/16 14:30 (Colace) 100 mg Q12H PO 06/16/16 14:30 06/17/16 01:09 (Senokot) 17.2 mg Q12H PRN PO 06/16/16 14:30 (Tylenol) 650 mg Q6H PRN PO 06/16/16 14:30 (Roxicodone) 10 mg Q4H PRN PO 06/16/16 14:30 (Morphine Inj) 4 mg Q3H PRN IV 06/16/16 14:30 (Roxicodone) 5 mg Q4H PRN PO 06/16/16 14:30 (Narcan Inj) 0.4 mg UNSCH PRN IV 06/16/16 14:30 (Plavix) 75 mg DAILY PO 06/16/16 14:30 06/17/16 11:22 (Synthroid) 125 mcg DAILY@06 PO 06/17/16 06:00 06/18/16 05:14 Enalaprilat 2.5 mg 2.5 mg Q6H PRN IV PUSH 06/16/16 14:30 (Heparin-D5W Inj) 250 ml @ 0 mls/hr TITRATE IV 06/16/16 18:00 06/16/16 17:09 Lisinopril 40 mg 40 mg DAILY PO 06/17/16 09:00 06/17/16 11:21 (Levaquin 750 Mg Premix Inj) 150 ml @ 100 mls/hr Q24H IV 06/17/16 10:00 06/17/16 11:23 (Vitamin B12) 1,000 mcg DAILY PO 06/18/16 09:00 (Lipitor) 80 mg HS PO 06/17/16 21:00 06/17/16 21:13 (Lopressor) 100 mg BID PO 06/17/16 21:00 06/17/16 21:13 (Imdur) 30 mg DAILY@07 PO 06/18/16 07:00 06/18/16 05:14 Vital Signs / I&O Vital Signs Date Time Temp Pulse Resp B/P Pulse Ox O2 Delivery O2 Flow Rate FiO2 06/18/16 07:15 67 06/18/16 07:15 98.3 62 18 94/54 98 06/18/16 04:00 60 06/18/16 04:00 98.2 60 18 162/86 97 06/18/16 00:00 98.3 61 18 159/87 95 06/18/16 00:00 61 06/17/16 20:00 68 06/17/16 20:00 98.7 68 18 149/85 96 06/17/16 18:36 98.0 60 18 142/70 98 06/17/16 17:52 64 06/17/16 14:34 98.0 58 18 138/78 98 06/17/16 11:30 57 06/17/16 11:24 96 21 06/17/16 11:02 98.4 59 16 143/84 97 I/O 06/17/16 06/17/16 06/17/16 06/18/16 06/18/16 06/18/16 07:00 15:00 23:00 07:00 15:00 23:00 Intake Total 240 ml 100 ml 480 ml Output Total 600 ml Balance 240 ml 100 ml -120 ml Intake Oral 240 ml 480 ml IV Total 100 ml Output Urine Total 600 ml # Voids 2 Physical Exam GENERAL: Well-nourished, well-developed patient. SKIN: Warm and dry. HEAD: Normocephalic. EYES: No scleral icterus. No injection or drainage. NECK: Supple, trachea midline. No JVD or lymphadenopathy. CARDIOVASCULAR: Regular rate and rhythm without murmurs, gallops, or rubs. RESPIRATORY: Breath sounds equal bilaterally. No accessory muscle use. GASTROINTESTINAL: Abdomen soft, non-tender, nondistended. EXTREMITIES: No cyanosis, or edema. NEUROLOGICAL: Awake, alert, and oriented x 3. Non-focal. Laboratory Laboratory Tests Test 06/18/16 05:00 Activated Partial 28.2 SEC Thromboplast Time Assessment and Plan Problem List: (1) Elevated troponin Assessment and Plan: S/P LHC unchanged. FFR negative for ischemia. Chest pain and elevated troponin due to coronary vasospasm. EKG NSR. Continue aggressive medical therapy for CAD Stable from cardiovascular standpoint to be discharge home today. Restart OAC with Xarelto for afib (2) Chest pain Problem Qualifiers (1) Chest pain: Qualified Code: R07.9 - Chest pain, unspecified type Alexandre Auguste MD Jun 18, 2016 09:26
[2016-06-18] MEDS ORDERED: RIVAROXABAN 20 MG TAB PO SCH (09:30)
[2016-06-18] MEDS: SODIUM CHLORIDE 0.9% FLUSH 5 ML FLUSH FLUSH SCH (09:38)
[2016-06-18] MEDS: CLOPIDOGREL 75 MG TAB PO SCH (09:38)
[2016-06-18] MEDS: METOPROLOL TARTRATE 100 MG TAB PO SCH (09:39)
[2016-06-18 10:00] VITALS: PULSE 60
[2016-06-18] MEDS ORDERED: VITA10002 PO (10:03)
[2016-06-18] MEDS ORDERED: LIPI80TA PO (10:03)
[2016-06-18] MEDS ORDERED: XARE20TA PO (10:03)
[2016-06-18] MEDS ORDERED: LISI-515 PO (10:03)
[2016-06-18] MEDS ORDERED: ISOS30TA3 PO (10:03)
[2016-06-18] MEDS ORDERED: METO-338 PO (10:03)
--- NOTE | 2016-06-18 10:04 | HHI.DCPOC ---
Discharge Care Plan Diagnosis: (1) Atrial fibrillation with RVR (2) NSTEMI (non-ST elevated myocardial infarction) (3) Chest pain (4) Elevated troponin Goals to Promote Your Health * To prevent worsening of your condition and complications * To maintain your health at the optimal level Directions to Meet Your Goals Take your medications as prescribed Follow your dietary instruction Follow activity as directed Keep your appointments as scheduled Take your immunizations and boosters as scheduled If your symptoms worsen call your PCP, if no PCP go to Urgent Care Center or Emergency Room Smoking is Dangerous to Your Health. Avoid second hand smoke Call the 24-hour hour crisis hotline for domestic abuse at Jae Rojas DO Jun 18, 2016 10:04
[2016-06-18] MEDS ORDERED: LEVA750T PO (10:08)
--- NOTE | 2016-06-18 10:13 | HHI.PR ---
Subjective Remarks The pt was ambulating. He was anxious to go home. He had no acute complaints. He said he saw the design analyst earlier who cleared him to go home. Objective Vitals Vital Signs Date Time Temp Pulse Resp B/P Pulse Ox O2 Delivery O2 Flow Rate FiO2 06/18/16 07:15 67 06/18/16 07:15 98.3 62 18 94/54 98 06/18/16 04:00 60 06/18/16 04:00 98.2 60 18 162/86 97 06/18/16 00:00 98.3 61 18 159/87 95 06/18/16 00:00 61 06/17/16 20:00 68 06/17/16 20:00 98.7 68 18 149/85 96 06/17/16 18:36 98.0 60 18 142/70 98 06/17/16 17:52 64 06/17/16 14:34 98.0 58 18 138/78 98 06/17/16 11:30 57 06/17/16 11:24 96 21 06/17/16 11:02 98.4 59 16 143/84 97 I/O 06/17/16 06/17/16 06/17/16 06/18/16 06/18/16 06/18/16 07:00 15:00 23:00 07:00 15:00 23:00 Intake Total 240 ml 100 ml 480 ml Output Total 600 ml Balance 240 ml 100 ml -120 ml Intake Oral 240 ml 480 ml IV Total 100 ml Output Urine Total 600 ml # Voids 2 Result Diagram: 06/17/16 0505 06/17/[address] Angiography 06/17/16 0000 Signed Impressions: Service Date/Time: Friday, June 17, 2016 02:09 - CONCLUSION: 1. No pulmonary embolus. 2. Mild, mainly atypical appearing infiltrates of both lungs. 3. Coronary artery calcification. 4. Large cyst partly seen in upper pole left kidney. Howard Chow MD Chest X-Ray 06/16/16 1023 Signed Impressions: Service Date/Time: Thursday, June 16, 2016 10:35 - CONCLUSION: Normal examination. Artie Matute MD Objective Remarks GENERAL: This is a well-nourished, well-developed patient, in no apparent distress. SKIN: No rashes, ecchymoses or lesions. Cool and dry. HEAD: Atraumatic. Normocephalic. No temporal or scalp tenderness. EYES: Pupils equal round and reactive. Extraocular motions intact. No scleral icterus. No injection or drainage. ENT: Nose without bleeding, purulent drainage or septal hematoma. Throat without erythema, tonsillar hypertrophy or exudate. Uvula midline. Airway patent. NECK: Trachea midline. No JVD or lymphadenopathy. Supple, nontender, no meningeal signs. CARDIOVASCULAR: Regular rate and rhythm without murmurs, gallops, or rubs. RESPIRATORY: Clear to auscultation. Breath sounds equal bilaterally. No wheezes , rales, or rhonchi. GASTROINTESTINAL: Abdomen soft, non-tender, nondistended. No hepato-splenomegaly , or palpable masses. No guarding. MUSCULOSKELETAL: No edema in the lower extremities. NEUROLOGICAL: Awake and alert. Cranial nerves II through XII intact. Five out of 5 muscle strength in all muscle groups. Numbness in bilateral feet. Normal speech. PSYCH: Mood and affect appropriate. Procedures Cardiac cath Medications and IVs Current Medications Medications (Trade) Dose Ordered Sig/Codie Route Start Time Stop Time Status Last Admin (NS Flush) 2 ml UNSCH PRN IVF 06/16/16 10:30 (NS Flush) 2 ml UNSCH PRN FLUSH 06/16/16 14:30 (NS Flush) 2 ml BID FLUSH 06/16/16 21:00 06/18/16 09:38 (Tylenol) 650 mg Q4H PRN PO 06/16/16 14:30 (Zofran Inj) 4 mg Q6H PRN IVP 06/16/16 14:30 (Colace) 100 mg Q12H PO 06/16/16 14:30 06/17/16 01:09 (Senokot) 17.2 mg Q12H PRN PO 06/16/16 14:30 (Tylenol) 650 mg Q6H PRN PO 06/16/16 14:30 (Roxicodone) 10 mg Q4H PRN PO 06/16/16 14:30 (Morphine Inj) 4 mg Q3H PRN IV 06/16/16 14:30 (Roxicodone) 5 mg Q4H PRN PO 06/16/16 14:30 (Narcan Inj) 0.4 mg UNSCH PRN IV 06/16/16 14:30 (Plavix) 75 mg DAILY PO 06/16/16 14:30 06/18/16 09:38 (Synthroid) 125 mcg DAILY@06 PO 06/17/16 06:00 06/18/16 05:14 Enalaprilat 2.5 mg 2.5 mg Q6H PRN IV PUSH 06/16/16 14:30 (Heparin-D5W Inj) 250 ml @ 0 mls/hr TITRATE IV 06/16/16 18:00 06/16/16 17:09 Lisinopril 40 mg 40 mg DAILY PO 06/17/16 09:00 06/17/16 11:21 (Levaquin 750 Mg Premix Inj) 150 ml @ 100 mls/hr Q24H IV 06/17/16 10:00 06/17/16 11:23 (Vitamin B12) 1,000 mcg DAILY PO 06/18/16 09:00 06/18/16 09:39 (Lipitor) 80 mg HS PO 06/17/16 21:00 06/17/16 21:13 (Lopressor) 100 mg BID PO 06/17/16 21:00 06/18/16 09:39 (Imdur) 30 mg DAILY@07 PO 06/18/16 07:00 06/18/16 05:14 (Xarelto) 20 mg DAILY PO 06/18/16 09:30 A/P Assessment and Plan NSTEMI Troponin level peaked at 0.91. EKG without evidence of ischemia. Likely secondary to A. fib with RVR. Recent cardiac cath with nonobstructive CAD and normal EF. Cardiac cath repeated 06/18/16 without obstructive disease. Chest pain likely s/t coronary vasospasm per cardiology. - continue Xarelto. - follow up with cardiology as an outpt. - Continue cardiac regimen. - Monitor on telemetry. - rate control. A. fib with RVR Recently hospitalized for the same thing. He experienced about 5 hours of palpitations the night prior to admission. He is on Lopressor as an outpatient. He has not been taking Xarelto. Heart rate well controlled at this time. - Increased Lopressor to 100 mg by mouth twice a day per cards. - Xarelto. - Telemetry. Accelerated hypertension Systolic blood pressure has been over 200 in the emergency department. On the low side 2/. - Increase home lisinopril to 20 mg daily. - increased Lopressor to 100 mg BID. - Vasotec as needed. Anemia/ Vit B12 deficiency Hemoglobin not far from baseline. B12 level < 60. - Vit B12 IM x 1 followed by 1000 mcg po daily. - out pt follow-up. COPD/ Nicotine dependence/ Atypical PNA The patient still smokes up to [address] with atypical infiltrates. - Cessation instruction. - oxygen and nebs as needed. - course of Levaquin. - sputum culture and gram stain. PPx: Heparin. Discharge Planning D/c home. Jae Rojas DO Jun 18, 2016 10:13
== END 2016-06-18 11:11 | disposition home or self-care (01) | DRG 286 ==
LOC: NEPC 09:58 → NEDA 12:29 → HCIS 18:25
PROVIDERS: ADMIT Hospitalist; ATTEND Hospitalist
PROC: 4A023N7 Measurement of Cardiac Sampling and Pressure, Left Heart, Percutaneous Approach (ICD-10-PCS; principal; 2016-06-16)
PROC: 4A033BC Measurement of Arterial Pressure, Coronary, Percutaneous Approach (ICD-10-PCS; 2016-06-16)
PROC: B2111ZZ Fluoroscopy of Multiple Coronary Arteries using Low Osmolar Contrast (ICD-10-PCS; 2016-06-16)
DX: I25.111 Atherosclerotic heart disease of native coronary artery with angina pectoris with documented spasm (principal); J18.9 Pneumonia, unspecified organism; J44.0 Chronic obstructive pulmonary disease with (acute) lower respiratory infection; I48.91 Unspecified atrial fibrillation; E53.8 Deficiency of other specified B group vitamins; D64.9 Anemia, unspecified; I47.1 Supraventricular tachycardia; I10 Essential (primary) hypertension; E03.9 Hypothyroidism, unspecified; E78.5 Hyperlipidemia, unspecified; M17.0 Bilateral primary osteoarthritis of knee; F17.210 Nicotine dependence, cigarettes, uncomplicated; Z91.14 Patient's other noncompliance with medication regimen
CPT/HCPCS: 71010; 71275; 80048; 80053; 82550; 82607; 82746; 83735; 84484; 85025; 85610; 85730; 93005; 93454; 93571; 99285; C1769; C1887; C1893; J0153; J1644; J1650; J1956; J2250; J3010; J3420; Q9967